=== PATIENT | female | born 1980 | race African-American/Black ===

== ENCOUNTER 2017-01-12 14:01 | Emergency (ER) | payer OTHER ==
[2017-01-12 14:14] VITALS: BP 122/80; PULSE 97; TEMP 98.4; BMI 34.7
--- NOTE | 2017-01-12 14:41 | PDOC ---
[id number] Source: Patient Exam Limitations: No Limitations - History of Present Illness Initial Comments: 36 yo presents with vag bleeding since this morning. She states that she noticed the bleeding upon waking up this morning. She initially felt a sensation of swelling in her vagina, then found the blood. She c/o lower abdominal cramping. 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 No associated discharge. No fever, chills. Denies any recent dysuria. <Jazmine Ward - Last Filed: 01/12/17 16:38> - General Chief Complaint: Vaginal Sxs Stated Complaint: 16WKS /ABD PAIN Time Seen by Provider: 01/12/17 14:22 Past History <Radha Shaffer - Last Filed: 01/12/17 16:13> - Past Medical History Diabetes: Yes (gestational) - Psycho/Social/Smoking Cessation Hx Anxiety: No Suicidal Ideation: No Smoking History: Current every day smoker Have you smoked in the past 12 months: Yes Number of Cigarettes Smoked Daily: 2 Information on smoking cessation initiated: No Hx Alcohol Use: No Drug/Substance Use Hx: No Substance Use Type: None <Jazmine Ward - Last Filed: 01/12/17 16:38> - Past Medical History Allergies/Adverse Reactions: Allergies Allergy/AdvReac Type Severity Reaction Status Date / Time No Known Allergies Allergy Verified 01/12/17 14:11 Home Medications: Ambulatory Orders NK [No Known Home Medication] 01/12/17 Review of Systems - Review of Systems Able to Perform ROS?: Yes Comments:: GENERAL/CONSTITUTIONAL: No fever or chills. No weakness. HEAD, EYES, EARS, NOSE AND THROAT: No change in vision. No ear pain or discharge. No sore throat. CARDIOVASCULAR: No chest pain or shortness of breath. RESPIRATORY: No cough, wheezing, or hemoptysis. GASTROINTESTINAL: No nausea, vomiting, diarrhea or constipation. GENITOURINARY: No dysuria, frequency, or change in urination. +Vag bleeding. MUSCULOSKELETAL: No joint or muscle swelling or pain. No neck or back pain. SKIN: No rash NEUROLOGIC: No headache, vertigo, loss of consciousness, or change in strength/ sensation. ENDOCRINE: No increased thirst. No abnormal weight change. HEMATOLOGIC/LYMPHATIC: No anemia, easy bleeding, or history of blood clots. ALLERGIC/IMMUNOLOGIC: No hives or skin allergy. <Jazmine Ward - Last Filed: 01/12/17 16:38> *Physical Exam - Vital Signs Last Vital Signs Temp Pulse Resp BP Pulse Ox 98.4 F 97 H 20 122/80 99 01/12/17 14:12 01/12/17 14:12 01/12/17 14:12 01/12/17 14:12 01/12/17 14:12 <Radha Shaffer - Last Filed: 01/12/17 16:13> - Vital Signs Last Vital Signs Temp Pulse Resp BP Pulse Ox 98.4 F 97 H 20 122/80 99 01/12/17 14:12 01/12/17 14:12 01/12/17 14:12 01/12/17 14:12 01/12/17 14:12 - Physical Exam Comments: GENERAL: Awake, alert, and fully oriented, in no acute distress HEAD: No signs of trauma EYES: PERRLA, EOMI, sclera anicteric, conjunctiva clear ENT: Auricles normal inspection, hearing grossly normal, nares patent, oropharynx clear without exudates. Moist mucosa NECK: Normal ROM, supple, no lymphadenopathy, JVD, or masses LUNGS: Breath sounds equal, clear to auscultation bilaterally. No wheezes, and no crackles HEART: Regular rate and rhythm, normal S1 and S2, no murmurs, rubs or gallops ABDOMEN: Soft, mild suprapubic tenderness, normoactive bowel sounds. No guarding, no rebound. No masses EXTREMITIES: Normal range of motion, no edema. No clubbing or cyanosis. No cords, erythema, or tenderness NEUROLOGICAL: Cranial nerves II through XII grossly intact. Normal speech, normal gait SKIN: Warm, Dry, normal turgor, no rashes or lesions noted. : No external lesions. Trace pink discharge in the vault. Os closed. No adnexal tenderness. <Jazmine Ward - Last Filed: 01/12/17 16:38> ED Treatment Course - LABORATORY CBC & Chemistry Diagram: 01/12/17 14:50 01/12/17 14:50 - ADDITIONAL ORDERS Additional order review: Laboratory Results 01/12/17 01/12/17 01/12/17 14:50 14:50 14:50 Sodium 139 Potassium 3.7 Chloride 107 Carbon Dioxide 23 Anion Gap 9 BUN 6 L Creatinine 0.5 L Creat Clearance w eGFR > 60 Random Glucose 131 H Calcium 8.8 Total Bilirubin 0.3 AST 13 L ALT 22 Alkaline Phosphatase 83 Total Protein 6.6 Albumin 3.1 L Beta HCG, Quant 99337.3 Urine Color Yellow Urine Appearance Cloudy Urine pH 7.0 Ur Specific [place] 1.012 Urine Protein Negative Urine Glucose (UA) Negative Urine Ketones Negative Urine Blood 1+ H Urine Nitrite Negative Urine Bilirubin Negative Urine Urobilinogen Negative Ur Leukocyte Esterase Negative Urine RBC 1 Urine WBC 5 Ur Epithelial Cells Rare Amorphous Phosphates Moderate Urine Bacteria Rare Urine Mucus Rare Blood Type O POSITIVE Antibody Screen Negative 01/12/17 14:50 RBC 4.08 MCV 89.6 MCHC 33.0 RDW 14.1 MPV 8.3 Neutrophils % 61.5 Lymphocytes % 30.3 Monocytes % 7.0 Eosinophils % 0.7 Basophils % 0.5 - RADIOLOGY Radiograph Interpretation: 01/12/17 16:13 EXAM: Pelvic US INTERPRETED BY: Dr. Narayanan REVIEWED BY: Dr. Ward IMPRESSION: Single live intrauterine with estimated gestational age of 12 weeks 6 days. heart activity was documented. Uterine cervix is closed within normal sagittal length of 3.2 cm. Normal limits are equal to or greater than 3 cm. - Medications Given in the ED: ED Medications Discontinued Medications Generic Name Dose Route Start Last Admin Trade Name Freq PRN Reason Stop Dose Admin Sodium Chloride 1,000 mls @ 1,000 mls/hr 01/12/17 14:42 01/12/17 14:56 Normal Saline - IV 01/12/17 15:41 1,000 mls/hr ASDIR STA Administration <Radha Shaffer - Last Filed: 01/12/17 16:13> - LABORATORY CBC & Chemistry Diagram: 01/12/17 14:50 01/12/17 14:50 <Jazmine Ward - Last Filed: 01/12/17 16:38> Medical Decision Making - Medical Decision Making 01/12/17 16:23 Reviewed sono results with patient at bedside. Counseled her about pelvic rest until she can f/u with her integrated marketing specialist. <Jazmine Ward - Last Filed: 01/12/17 16:38> *DC/Admit/Observation/Transfer - Attestations Scribe Attestion: 01/12/17 16:13 Documentation prepared by Radha Shaffer, acting as medical doctor nuclear medicine for Jazmine Ward MD. <Radha Shaffer - Last Filed: 01/12/17 16:13> - Discharge Dispostion Admit: No <Jazmine Ward - Last Filed: 01/12/17 16:38> Diagnosis at time of Disposition: Threatened miscarriage - Discharge Dispostion Disposition: HOME Condition at time of disposition: Stable - Patient Instructions Printed Discharge Instructions: DI for Threatened
[2017-01-12] MEDS ORDERED: SODIUM CHLORIDE 1,000 ML IV STA (14:42)
[2017-01-12 14:57] LABS: BASOPHIL 0.5 % (0-2.0); EOSINOPHIL 0.7 % (0-4.5); MCH 29.6 pg (25.7-33.7); MEAN CELL VOLUME 89.6 fl (80-96); MEAN PLT VOLUME 8.3 fl (7.5-11.1); NEUTROPHILS 61.5 % (42.8-82.8); PLATELET COUNT 226 K/MM3 (134-434); RDW 14.1 % (11.6-15.6); WHITE BLOOD COUNT 7.9 K/mm3 (4.0-10.0)
[2017-01-12 14:58] LABS: URINE APPEARANCE CLOUDY; URINE BILIRUBIN NEGATIVE (NEGATIVE); URINE COLOR YELLOW; URINE GLUCOSE (UA) NEGATIVE (NEGATIVE); URINE KETONE NEGATIVE (NEGATIVE); URINE LEUK ESTERASE NEGATIVE (NEGATIVE); URINE NITRITE NEGATIVE (NEGATIVE); URINE PROTEIN NEGATIVE (NEGATIVE); URINE UROBILINOGEN NEGATIVE E.U./dl (0.2-1.0)
[2017-01-12 15:01] LABS: URINE BLOOD 1+ (NEGATIVE)
[2017-01-12 15:05] LABS: URINE BACTERIA RARE /hpf (NONE SEEN); URINE MUCUS RARE; URINE RBC 1 /hpf (0-3); URINE WBC 5 /hpf (3-5)
[2017-01-12 15:31] LABS: ALBUMIN 3.1 g/dl (3.4-5.0); ANION GAP 9 (8-16); BILIRUBIN,TOTAL 0.3 mg/dL (0.2-1.0); CALCIUM 8.8 mg/dL (8.5-10.1); CO2 23 mmol/L (21-32); CREATININE 0.5 mg/dL (0.55-1.02); GLUCOSE,RANDOM 131 mg/dL (74-106); SGOT/AST 13 U/L (15-37); SGPT/ALT 22 U/L (12-78); TOT PROT 6.6 g/dl (6.4-8.2)
[2017-01-12 15:47] LABS: ALK PHOS 83 U/L (45-117)
== END 2017-01-12 16:29 | disposition home or self-care (01) ==
LOC: JER 14:01
PROC: 3E0337Z Introduction of Electrolytic and Water Balance Substance into Peripheral Vein, Percutaneous Approach (ICD-10-PCS; principal; 2017-01-12)
DX: O20.0 Threatened abortion (principal); Z3A.12 12 weeks gestation of pregnancy; F17.210 Nicotine dependence, cigarettes, uncomplicated
CPT/HCPCS: 36415; 76815-TC; 80053; 81003; 81015; 84702; 85025; 86850; 86900; 86901; 99283-25